=== PATIENT | female | born 1980 | race African-American/Black ===

== ENCOUNTER 2022-09-19 01:16 | Emergency (ER) | payer MEDICAID, OTHER ==
[~2022-09-19] VITALS: Ht 160 cm; Wt 66.0 kg
[~2022-09-19 01:16] MED LIST: RANI-645
[2022-09-19 01:20] VITALS: BP 164/82
[2022-09-19] MEDS ORDERED: MAGNESIUM/ALUMINUM HYDROXIDE/SIMETHICONE 30ML UDC PO STA (01:33)
[2022-09-19] MEDS ORDERED: ONDANSETRON HCL 4MG/2ML INJ IV STA (01:33)
[2022-09-19] MEDS ORDERED: VISCOUS LIDOCAINE 2% 15 ML UDC PO STA (01:33)
== END 2022-09-19 02:30 | disposition left against medical advice (07) ==
LOC: ER 01:16
DX: Z53.21 Procedure and treatment not carried out due to patient leaving prior to being seen by health care provider (principal); R07.9 Chest pain, unspecified; R10.9 Unspecified abdominal pain; R19.7 Diarrhea, unspecified
CPT/HCPCS: 93005; 99281